=== PATIENT | female | born 1990 | race Caucasian/White ===

== ENCOUNTER → 2017-03-18 | Outpatient (CLI) | payer OTHER | LOC: COL.RAD 10:29 | DX: N92.6 Irregular menstruation, unspecified (principal); N73.8 Other specified female pelvic inflammatory diseases ==

== ENCOUNTER → 2021-07-24 | Outpatient (CLI) | payer BC | LOC: ZCOL.LAB 13:16 | DX: R09.81 Nasal congestion (principal); R05.1 Acute cough; Z20.822 Contact with and (suspected) exposure to COVID-19 ==